=== PATIENT | female | born 1995 | race Caucasian/White ===

== ENCOUNTER 2024-04-15 18:08 | Emergency (ER) | payer OTHER, SELFPAY ==
[2024-04-15 18:09] VITALS: BP 119/91; PULSE 98; RESP 16; TEMP 36.7; O2SAT 99; BMI 37.2
--- NOTE | 2024-04-15 18:37 | CT_ITS ---
STUDY: CT BRAIN WITHOUT CONTRAST REASON FOR EXAM: Female, 28 years old. vertigo RADIATION DOSAGE (If Supplied By Facility): CTDIvol = ( 44.99 ) mGy, DLP = ( 829.85 ) mGycm TECHNIQUE: Transaxial CT imaging of the brain was performed without administration of intravenous contrast material. Individualized dose optimization techniques were used for this CT. COMPARISON: No relevant priors. FINDINGS: Normal soft tissue structures. Normal calvarium. Normal size ventricles and extra-axial spaces for the patient''s age. Normal white matter tracts of the cerebral hemispheres. Normal basal ganglia and thalami. Normal brainstem. Normal cerebellum. Partial empty sella deformity likely of no significance There is no intracranial hemorrhage. There are no findings of an acute ischemic infarction. Normal visualized paranasal sinuses. Soft tissue density in the right external auditory canal likely cerumen CT/Brain/Head without Contrast IMPRESSION: Partial empty sella deformity otherwise normal unenhanced CT of the brain Electronically Signed: Colton Jansen MD at 19:18 EDT ,
--- NOTE | 2024-04-15 18:39 | EDS_ITS ---
HPI History of Present Illness Chief Complaint: Dizziness Detail of Chief Complaint: Vertigo Informant: patient Narrative Narrative: Patient presents to the emergency department complaint of dizziness that started 5 days ago before she went to bed. She describes spinning sensation when head turned to the left mostly. She was seen at urgent care yesterday apparently had a Hallpike maneuver performed which showed nystagmus with head turn to the left. She was ordered Antivert but pharmacy did not have meclizine in stock. Patient has been taking Dramamine and that has helped her nausea. Patient complains of feeling off balance. She denies any falls or head injuries. She has had some intermittent headaches. She denies recent illness. She denies ear pain. PFSH [facility] Home Medications ?Medication ?Instructions ?Recorded ?Last Taken ?Type lorazepam 1 mg tablet (Ativan) 1 mg PO TID PRN dizziness or 04/15/24 Unknown Rx vertigo #10 tabs meclizine 25 mg chewable tablet 25 mg PO TID PRN dizziness #20 tabs 04/15/24 Unknown Rx (Antivert) Allergy/AdvReac Type Severity Reaction Status Date / Time No Known Allergies Allergy Verified 04/15/24 18:08 Social History Smoking Status: Never smoker ROS ROS ED Review of Systems ROS Unobtainable: other Constitutional Constitutional ED: Reports lethargy; Denies chills, fever(s), sweats or weight loss Eyes Eyes: Denies blurry vision, change in vision or diplopia ENT ENT ED: Denies rhinorrhea or sore throat Cardiovascular Cardiovascular: Denies chest pain, orthopnea or racing heartbeat Respiratory/Chest Respiratory/Chest: Denies cough, dyspnea, dyspnea on exertion, orthopnea or sputum Gastrointestinal Gastrointestinal: Reports nausea; Denies abdominal pain, diarrhea or vomiting Genitourinary Genitourinary ED: Denies dysuria, hematuria or urinary frequency Musculoskeletal Musculoskeletal: Denies arthralgias, back pain, myalgias or neck pain Integumentary Denies abscess, Abrasions or rash Neurologic Neurologic: Reports other Details: Dizziness ; Denies headache(s) or weakness Psychiatric Psychiatric: Denies anxiety, depression or suicidal thoughts Endocrine Endocrinology: Denies polydipsia, polyphagia or polyuria Hematologic/Lymphatic Hematologic/Lymphatic: Denies easy bleeding, easy bruising or lymphadenopathy Allergic/Immunologic Allergic/Immunologic ED: Denies mouth swelling, tongue swelling or urticaria EXAM Physical Exam Const Vital Signs: 04/15/24 18:09 04/15/24 19:21 Temperature 98.1 F 99.2 F H Temperature Source Oral Oral Pulse Rate 98 78 Respiratory Rate 16 16 Blood Pressure 119/91 H 142/80 H Blood Pressure Mean 100 100 Pulse Ox 99 98 Oxygen Delivery Method Room Air Room Air Positive well nourished and well developed General Appearance ED: well developed and NAD HEENT Reports TM's clear and moist mucous membranes normocephalic and atraumatic; Negative for trauma or tenderness Tympanic Membrane ED: Yes TM's clear Eyes PERRL and EOMs intact bilaterally General Eye ED: Negative for pale conjunctiva or scleral icterus Neck no lymphadenopathy, supple and no JVD General: Negative for tenderness Chest Wall inspection of chest normal and palpation of chest normal Chest: Negative for tenderness Resp normal respiratory effort and clear to auscultation bilaterally Effort and Inspection: Negative for respiratory distress or pain with movement Auscultation: Negative for rhonchi, wheezes or diminished lung sounds Cardio regular rate, regular rhythm, S1 normal heart sound, S2 normal heart sound and no murmurs Peripheral Pulses: pulses 2+ throughout GI normal to inspection, nondistended, normoactive bowel sounds, soft to palpation, non-tender, non-distended and no masses Back/Spine no CVA tenderness and no thoracic nor lumbar tenderness Extremity normal to inspection General Extremety ED: Negative for edema General Extremity: Negative for edema Neuro oriented x3, CN's II-XII intact bilaterally, no sensory deficits noted and gait normal Neuro Narrative: Finger-nose and heel park testing within normal limits, negative Romberg, negative for drift, fundi benign. Hallpike maneuver performed did show horizontal nystagmus with head turn to the left and patient became acutely symptomatic. Sensorium / Orientation: awake, alert, oriented to person, oriented to place and oriented to time Motor Exam: strength 5/5 throughout and strength abnormal Psych mental status grossly normal Skin no rashes or lesions noted and no wounds MDM MDM MDM Narrative Medical decision making narrative: Patient will have a CT scan of the brain without contrast. She will be given Antivert and Ativan to help with symptomatology. CT scan of the brain without contrast showed partially empty sella deformity otherwise normal and an CT of the brain. Patient received Antivert and milligram of Ativan but continues to have some dizziness especially with looking to the left. We did perform the Ling maneuver. At this point she will be discharged to home with referral to ENT. She will be given a prescription for Antivert and Ativan. She is advised not to lie flat for 2 days and sleep in a chair. Radiography Diagnostic Testing: Clinical Impression(s) from Imaging Studies Brain CT 04/15/24 18:37 IMPRESSION: Partial empty sella deformity otherwise normal unenhanced CT of the brain Electronically Signed: Colton Jansen MD at 19:18 EDT , Discharge Plan Triage Chief Complaint: Dizziness ED Provider: Andreia Rebolledo Dx/Rx/DC Orders Clinical Impression: Benign positional vertigo Instructions: Vertigo Medicine Tx, ED BPV Vertigo Prescriptions: New meclizine [Antivert] 25 mg tablet,chewable 25 mg PO TID PRN (Reason: dizziness) Qty: 20 0RF lorazepam [Ativan] 1 mg tablet 1 mg PO TID PRN (Reason: dizziness or vertigo) Qty: 10 0RF Primary Care Provider: Care Physician,No Primary Referrals: Eric Griffith MD [Med Staff - Active Staff] - 3-5 Days NOT,DEFINED [Non-Staff] - Print Language: [place] Disposition Disposition: Home, Self Care
[2024-04-15] MEDS: LORazepam 1 MG Tablet PO (18:46)
[2024-04-15] MEDS: Meclizine HCl 25 MG Tablet PO (18:46)
[2024-04-15 19:21] VITALS: BP 142/80; PULSE 78; RESP 16; TEMP 37.3; O2SAT 98
[2024-04-15 20:22] VITALS: BP 128/71; PULSE 78; RESP 16; TEMP 36.6; O2SAT 99
== END 2024-04-15 20:22 | disposition home or self-care (01) ==
PROVIDERS: Emergency Provider Emergency Medicine; Visit Provider Emergency Medicine
DX: H81.12 Benign paroxysmal vertigo, left ear (principal); G93.89 Other specified disorders of brain; R51.9 Headache, unspecified
CPT/HCPCS: 70450; 99282